=== PATIENT | female | born 1995 | race African-American/Black ===

== ENCOUNTER 2020-01-28 18:04 | Emergency (ER) | payer OTHER ==
[2020-01-28 18:14] VITALS: BP 162/105
[2020-01-28] MEDS ORDERED: PROCHLORPERAZINE EDISYLATE INJ 10 MG/2 ML VIAL IV ONE (19:21)
[2020-01-28] MEDS ORDERED: DIPHENHYDRAMINE HCL 50 MG/ML VIAL IV ONE (19:21)
--- NOTE | 2020-01-28 19:24 | ER Document Report ---
ED Medical Screen (RME) - General Chief Complaint: Headache Stated Complaint: HEADACHE,SLURRED SPEECH Time Seen by Provider: 01/28/20 19:11 Primary Care Provider: CANDELARIO ESPOSITO PA [Primary Care Provider] - Follow up as needed Notes: HPI: 24-year-old female with history of headaches that occur every 3 months or so which she has clinically been told were migraines presenting to the emergency department complaining of sudden onset of headache today that began as her typical migraines usually do with pain behind the left eye with some light sensitivity. States occasionally she does get some numbness tingling in the a nilesh with this, did develop some tingling in the right arm with a left-sided headache. Headache began around 5 PM today. Patient normally takes an [id number] migraine medication and states she took a new one today which did not seem to resolve the headache. States that she then was on the phone with her mother and her and they both noticed her stuttering and slurring her speech. States this lasted approximately an hour. No dizziness. No weakness in the extremities. No chest pain shortness of breath. Still with slight headache currently but states that now feels like 1 of her typical headaches that she would consider to be migraine type. Patient states that she has never had imaging studies to evaluate the headaches PHYSICAL EXAMINATION: Answering all questions appropriately, no specific photosensitivity. No nystagmus. Moving all extremities equally with strength 5/5 bilateral upper and lower extremities with intact sensation. No slurred speech. No facial droop I have greeted and performed a rapid initial assessment of this patient. A comprehensive ED assessment and evaluation of the patient, analysis of test results and completion of medical decision making process will be conducted by an additional ED providers. - Related Data Allergies/Adverse Reactions: No Known Allergies Allergy (Unverified 06/02/17 23:26) Past Medical History - Social History Frequency of alcohol use: None Drug Abuse: None Neurological Medical History: Reports: Hx Migraine Renal/ Medical History: Denies: Hx Peritoneal Dialysis - Immunizations Immunizations up to date: Yes Hx Diphtheria, Pertussis, Tetanus Vaccination: Yes Physical Exam - Vital signs Vitals: Temp Pulse Resp BP Pulse Ox 98.1 F 100 16 162/105 H 97 01/28/20 18:12 01/28/20 18:12 01/28/20 18:12 01/28/20 18:12 01/28/20 18:12 Course - Vital Signs Vital signs: Temp Pulse Resp BP Pulse Ox 98.1 F 100 16 162/105 H 97 01/28/20 19:07 01/28/20 18:12 01/28/20 18:12 01/28/20 18:12 01/28/20 18:12 Doctor's Discharge - Discharge Referrals: CANDELARIO ESPOSITO PA [Primary Care Provider] - Follow up as needed
--- NOTE | 2020-01-28 20:44 | RADIOLOGY REPORT (SQ) ---
EXAM DESCRIPTION: CT HEAD WITHOUT IV CONTRAST COMPLETED DATE/TME: 01/28/2020 19:20 CLINICAL HISTORY: 24 years, Female, headache speech difficulty COMPARISON: None. TECHNIQUE: Noncontrast CT head was acquired. Coronal and sagittal reformations were created. Images stored on PACS. All CT scanners at this facility use dose modulation, iterative reconstruction, and/or weight based dosing when appropriate to reduce radiation dose to as low as reasonably achievable (ALARA). [facility]: Dose Right [facility]: CareDose [facility]: Dose Right [facility]: Teradose 4D [facility]: [employer] LIMITATIONS: None. FINDINGS: Brain parenchyma is normal in attenuation. No acute intracranial hemorrhage, mass effect, or extra-axial fluid is seen. Prominence of the extra-axial space about the left anterior middle cranial fossa on image 14 of series 2 could correspond to an arachnoid cyst at this site. Globes and orbits show no suspicious abnormality. Paranasal sinuses and mastoid air cells are clear. No depressed skull fractures. IMPRESSION: No acute intracranial abnormality. TECHNICAL DOCUMENTATION: Quality ID # 436: Final reports with documentation of one or more dose reduction techniques (e.g., Automated exposure control, adjustment of the mA and/or kV according to patient size, use of iterative reconstruction technique) copyright 2011 [employer]- All Rights Reserved
[2020-01-28] MEDS ORDERED: PROCHLORPERAZINE EDISYLATE INJ 10 MG/2 ML VIAL IM ONE (21:14)
[2020-01-28] MEDS ORDERED: DIPHENHYDRAMINE HCL 50 MG/ML VIAL IM ONE (21:14)
[2020-01-28 21:34] LABS: ABSOLUTE BASOPHILS # (AUTO) 0.1 10^3/uL (0.0-0.2); ABSOLUTE EOSINOPHILS # (AUTO) 0.1 10^3/uL (0.0-0.6); ABSOLUTE MONOCYTES (AUTO) 0.6 10^3/uL (0.1-1.4); ABSOLUTE NEUT (AUTO) 2.9 10^3/uL (1.7-8.2); PLATELET COUNT 216 10^3/uL (150-450); TOTAL CELLS COUNTED % (AUTO) 100 %
[2020-01-28 21:50] LABS: ABSOLUTE LYMPHOCYTES (AUTO) 2.6 10^3/uL (0.5-4.7); EOSINOPHILS % (AUTO) 1.2 % (0-6); HEMATOCRIT 40.4 % (36.0-47.0); LYMPHOCYTES % (AUTO) 42.7 % (13-45); MEAN CORPUSCULAR HEMOGLOBIN 28.6 pg (27.0-33.4); MEAN CORPUSCULAR HGB CONC 34.6 g/dL (32.0-36.0); MEAN CORPUSCULAR VOLUME 83 fl (80-97); RED BLOOD COUNT 4.88 10^6/uL (3.72-5.28); SEGMENTED NEUTROPHILS % (AUTO) 46.1 % (42-78); WHITE BLOOD COUNT 6.2 10^3/uL (4.0-10.5)
[2020-01-28 22:07] LABS: ALBUMIN 4.8 g/dL (3.5-5.0); ALKALINE PHOSPHATASE 73 U/L (38-126); ANION GAP 10 (5-19); ASPARTATE AMINO TRANSFERASE 35 U/L (14-36); BILIRUBIN,DIRECT 0.1 mg/dL (0.0-0.4); BILIRUBIN,TOTAL 0.6 mg/dL (0.2-1.3); BLOOD UREA NITROGEN 7 mg/dL (7-20); CALCIUM 9.3 mg/dL (8.4-10.2); CARBON DIOXIDE 22 mmol/L (22-30); CHLORIDE 106 mmol/L (98-107); GLUCOSE 82 mg/dL (75-110); POTASSIUM 3.7 mmol/L (3.6-5.0); TOTAL PROTEIN 8.3 g/dL (6.3-8.2)
--- NOTE | 2020-01-28 22:48 | ER Document Report ---
Doctor's Note Notes: 01/28/20 22:46 Presented to triage nurse requesting to leave AGAINST MEDICAL ADVICE. States she cannot wait any longer to get seen and get her test results. The patient has chosen to leave the facility against medical advice. The relevant issues have been reviewed and discussed with the patient and family at the bedside. At the time of this assessment there is no indication for involuntary commitment. The patient is alert, oriented, and able to express clearly their reasoning for not wanting to remain in the emergency department for further treatment. The patient is not clinically psychotic, intoxicated, and denies and suicidal ideation. Differential or suspected diagnoses based on medical screening exam: Headache, slurred speech. The patient is aware of the concerning diagnoses and acknowledges understanding of the reasons for the following recommendations: Loss of life, permanent disability, chronic pain, worsening of condition, cardiac dysfunction, respiratory dysfunction loss of current lifestyle, neurological dysfunction The following recommendations/services were offered and refused: Evaluation by healthcare provider The following risks were explained: , permanent disability, loss of function, neurological dysfunction, worsening of condition, chronic pain, loss of current lifestyle. Clinical impression: Patient is competent to make decisions regarding the medical that is being offered. Patient has agreed to sign out AMA after being given all the above risk factors.
== END 2020-01-28 22:48 | disposition left against medical advice (07) ==
LOC: ER 18:04
DX: G43.909 Migraine, unspecified, not intractable, without status migrainosus (principal); R20.2 Paresthesia of skin; H53.149 Visual discomfort, unspecified; F80.81 Childhood onset fluency disorder; Z53.29 Procedure and treatment not carried out because of patient's decision for other reasons
CPT/HCPCS: 99284; 96372; 36415; 84703; 85025; 80053; 70450; J1200; J0780